=== PATIENT | female | born 2000 | race African-American/Black ===

== ENCOUNTER 2019-07-19 05:10 | Inpatient (IN) ==
[2019-07-19] MEDS ORDERED: ONDANSETRON 4 MG/2 ML VIAL IV PRN (05:21)
[2019-07-19] MEDS ORDERED: MEPERIDINE 50 MG/1 ML VIAL IV PRN (05:21)
[2019-07-19] MEDS ORDERED: BUTORPHANOL 2 MG/ML VIAL IV PRN (05:21)
[2019-07-19] MEDS ORDERED: OXYTOCIN/LR 20 UNIT/1,000 ML BAG IV SCH (05:30)
[2019-07-19] MEDS: LACTATED RINGERS 1,000 ML IV SCH ×2 (05:45→09:44)
[2019-07-19 05:49] LABS: Basophils % 0.2 % (0.0-0.8); Eosinophils # 0.3 10*3/uL (0.0-0.87); Eosinophils % 2.2 % (0.00-10.9); Hematocrit 29.9 VOL% (35.7-47.0); Hemoglobin 10.4 GM/DL (12.0-16.0); Immature Granulocytes % 0.9 %; Lymphocytes # 2.9 10*3/uL (1.4-4.0); Lymphocytes % 25.5 % (21.3-54.2); Mean Corpuscular HGB Conc 34.8 GM/DL (32-36); Mean Corpuscular Volume 95.2 FL (87-102); Mean Platelet Volume 13.1 FL (9.6-12.0); Monocytes % 7.3 % (1.7-12.7); Neutrophils % 63.9 % (38.7-73.9); Platelet Count 98 T/CUMM (130-400); Red Blood Count 3.14 MC/CUMM (3.8-5.5); Red Cell Distribution Width 12.6 % (9.3-17.3); White Blood Count 11.5 T/CUMM (4-12)
[2019-07-19 06:09] LABS: Eosinophils 2 % (0-10); Lymphocytes 22 % (20-55); Segmented Neutrophils 70 % (50-85); Total Cells Counted 100
[2019-07-19 06:10] LABS: Anisocytosis 1+; Macrocytosis 1+; Platelet Estimate Decreased
[2019-07-19 06:11] LABS: Albumin 2.6 G/DL (3.4-5.0); Bilirubin,Total 0.6 MG/DL (0.2-1.0); Calcium 8.4 MG/DL (8.5-10.1); Osmolality,Calculated 273.4 MOS/KG (273-304); Total Protein 6.9 G/DL (6.4-8.3)
[2019-07-19] MEDS ORDERED: ePHEDrine 50 MG/ML AMP IV PRN (07:31)
[2019-07-19] MEDS ORDERED: hydrOXYzine HCL 25 MG/1 ML VIAL IM PRN (07:31)
[2019-07-19] MEDS ORDERED: PROMETHAZINE 25 MG/1 ML VIAL IM ONE (07:31)
[2019-07-19] MEDS ORDERED: diphenhydrAMINE 50 MG/1 ML VIAL IV PRN ×2 (07:31)
[2019-07-19] MEDS ORDERED: NALOXONE 0.4 MG/ML VIAL IV PRN (07:31)
[2019-07-19] MEDS ORDERED: CITRIC ACID/SODIUM CITRATE 30 ML UDCUP PO ONE (07:31)
[2019-07-19] MEDS ORDERED: FAMOTIDINE 20 MG/2 ML VIAL IV ONE (07:31)
[2019-07-19] MEDS ORDERED: LACTATED RINGERS 1,000 ML IV ONE (07:31)
[2019-07-19] MEDS ORDERED: fentaNYL 2 MCG/ROPIV 0.2% EPID 100 ML EPIDURAL SCH (08:00)
[2019-07-19 12:37] LABS: Apearance,Urine CLEAR (Clear); Bacteria,Urine Occasional /HPF (Few); Bilirubin,Urine Negative (Negative); Blood, Urine Negative (Negative); Glucose,Urine (UA) Negative (Negative); Ketones,Urine Negative (Negative); Nitrite,Urine Negative (Negative); Protein,Urine Negative; Urine Color Yellow (Yellow); Urine Specific Gravity 1.003 (1.001-1.035); Urine Urobilinogen < 2.0 EU/DL (0.2-1.0); WBC,Urine <1 /HPF (0-6)
[2019-07-19] MEDS ORDERED: LIDOCAINE 1% 50 ML VIAL ONE (14:26)
[2019-07-19] MEDS ORDERED: miSOPROStoL 200 MCG TABLET ONE (14:27)
[2019-07-19 15:35] LABS: Cord Arterial Blood HCO3 21.2 MMOL/L
[2019-07-19 15:40] LABS: Cord Venous Blood HCO3 23.5 MMOL/L; Cord Venous Blood PCO2 38.5 MMHG; Cord Venous Blood PO2 31.3
[2019-07-19] MEDS ORDERED: BENZOCAINE 20%/MENTHOL 0.5% SPRAY 56 GM CAN TOP PRN (17:31)
[2019-07-19] MEDS ORDERED: oxyCODONE/ACETAMINOPHEN 5-325 MG TABLET PO PRN (17:31)
[2019-07-19] MEDS ORDERED: WITCH HAZEL PADS 100/JAR TOP PRN (17:31)
[2019-07-19] MEDS ORDERED: BISACODYL 10 MG SUPP RECTAL PRN (17:31)
[2019-07-19] MEDS ORDERED: ACETAMINOPHEN 325 MG TABLET PO PRN (17:31)
[2019-07-19] MEDS ORDERED: RHO(D) IMMUNE GLOBULIN 300 MCG SYRINGE IM ONE (17:31)
[2019-07-19] MEDS ORDERED: HYDROCORTISONE 2.5% RECTAL CREAM 30 GM TUBE TOP PRN (17:31)
[2019-07-19] MEDS ORDERED: LANOLIN 50% CREAM 0.3 OZ TUBE TOP PRN (17:31)
[2019-07-19] MEDS ORDERED: DIPH/TET/ACEL PERT BOOSTER VACCINE 0.5 ML VIAL IM ONE (17:31)
[2019-07-19] MEDS ORDERED: MEASLES/MUMPS/RUBELLA VACCINE 0.5 ML VIAL SUBCUT ONE (17:31)
[2019-07-19] MEDS ORDERED: OXYTOCIN/LR 20 UNIT/1,000 ML BAG IV ONE ×2 (17:51→18:45)
[2019-07-19] MEDS: oxyCODONE/ACETAMINOPHEN 5-325 MG TABLET PO PRN (19:30)
[2019-07-19] MEDS: FERROUS SULFATE 325 MG TABLET PO SCH (20:57)
[2019-07-19] MEDS: DOCUSATE SODIUM 100 MG CAPSULE PO SCH (20:57)
[2019-07-19] MEDS: IBUPROFEN 800 MG TABLET PO PRN (22:46)
[2019-07-20] MEDS: oxyCODONE/ACETAMINOPHEN 5-325 MG TABLET PO PRN ×3 (04:10→18:37)
[2019-07-20 06:09] LABS: Basophils % 0.2 % (0.0-0.8); Eosinophils # 0.2 10*3/uL (0.0-0.87); Eosinophils % 1.1 % (0.00-10.9); Hematocrit 23.9 VOL% (35.7-47.0); Hemoglobin 8.1 GM/DL (12.0-16.0); Immature Granulocytes % 0.9 %; Immature Granulocytes Absolute 0.17 #; Lymphocytes # 3.4 10*3/uL (1.4-4.0); Lymphocytes % 18.9 % (21.3-54.2); Mean Corpuscular HGB Conc 33.9 GM/DL (32-36); Mean Corpuscular Volume 97.6 FL (87-102); Mean Platelet Volume 12.5 FL (9.6-12.0); Monocytes % 6.9 % (1.7-12.7); Platelet Count 70 T/CUMM (130-400); Red Blood Count 2.45 MC/CUMM (3.8-5.5); Red Cell Distribution Width 12.3 % (9.3-17.3)
[2019-07-20 06:50] LABS: Eosinophils 1 % (0-10); Lymphocytes 22 % (20-55); Platelet Estimate Decreased; Segmented Neutrophils 72 % (50-85); Total Cells Counted 100
[2019-07-20 06:52] LABS: Ovalocytes Slight; Target Cells Slight
[2019-07-20] MEDS: DOCUSATE SODIUM 100 MG CAPSULE PO SCH ×2 (08:49→21:51)
[2019-07-20] MEDS: FERROUS SULFATE 325 MG TABLET PO SCH ×2 (08:49→21:51)
[2019-07-20] MEDS: IBUPROFEN 800 MG TABLET PO PRN ×2 (08:50→15:10)
[2019-07-21 07:23] VITALS: BP 128/64
[2019-07-21] MEDS: IBUPROFEN 800 MG TABLET PO PRN (08:16)
[2019-07-21] MEDS: oxyCODONE/ACETAMINOPHEN 5-325 MG TABLET PO PRN (08:17)
[2019-07-21] MEDS: FERROUS SULFATE 325 MG TABLET PO SCH (08:18)
[2019-07-21] MEDS: DOCUSATE SODIUM 100 MG CAPSULE PO SCH (08:18)
== END 2019-07-21 13:55 | disposition home or self-care (01) | DRG 560 ==
LOC: N.LDOUT 05:10 → N.LD 05:14 → N.OB 17:16
PROVIDERS: ADMIT Obstetrics & Gynecology; ATTEND Obstetrics & Gynecology